=== PATIENT | female | born 1970 | race Caucasian/White ===

== ENCOUNTER 2020-02-25 05:10 | Emergency (ER) | payer OTHER ==
[~2020-02-25] VITALS: Ht 165.1 cm; Wt 86.2 kg
[~2020-02-25 05:10] MED LIST: ALLEGRA30 MG; AMBIEN; ASPIRIN325 PO; BACLOFEN 10MG T10 MG PO; BYSTOLIC10 MG PO; COLACE100 MG PO; DIVIGEL0.5 MG TRANSDERM; FLEXERIL; FLONASE 0.05%50 MCG NASAL; GLUCOPHAGE500 MG PO; KLONIPIN; KLONOPIN0.5 MG PO; METAMUCIL1 EAC1 PO; MIRALAX17 GM PO; MOBIC15 MG PO; NAPROSYN500 MG PO; NORCO 5-325 TA1 EACH PO; OXYCODONE HCL 55 MG PO; SAVELLA100 MG PO; SPIRONOLACTONE; SPIRONOLACTONE50 MG PO; TRAMADOL 50 MG50 MG PO; VENLAFAXIN75 MG/1 T2 PO; VESICARE 5 MG TA5 M1 PO; VESICARE 5 MG TA5 MG PO; XARELTO10 M1 PO; XARELTO10 MG PO; ZOLPIDEM TART12.5 MG PO; [UNRECOGNIZED DRUG - OTHER]
[2020-02-25] MEDS ORDERED: HYDROCODON-ACE1 EAC7 PO (05:22)
[2020-02-25] MEDS ORDERED: CELEBREX50 MG PO (05:22)
[2020-02-25] MEDS ORDERED: GABAPENTIN800 M1 PO (05:23)
[2020-02-25] MEDS ORDERED: MEDROLDOSEPACK PO (06:25)
[2020-02-25] MEDS ORDERED: PEPCID40 MG PO (06:25)
[2020-02-25 07:26] VITALS: BP 112/68
--- NOTE | 2020-02-28 11:55 | EKG ---
[place] [address] ELECTROCARDIOGRAM REPORT Name: MAMIE ZHENG Brenda Room: [facility]#: [id number] Admission: 02/25/20 Attend Phys: Discharge: 02/25/20 Date of : 66 Date of Service: 02/25/20 0553 Report #: [id number] THIS REPORT FOR: //name// [facility] ED Test Date: 2020-02-25 Test Time: 05:53:30 Pat Name: MAMIE ZHENG Department: Room: Gender: Tug Hand: : 1970 Requested By: Luciana James Order Number: [id number] MD: Kamaljit Cerda Measurements Intervals [place] Rate: 89 P: 37 [place]: 171 QRS: 26 QRSD: 60 T: 84 QT: 488 QTc: 594 Interpretive Statements Sinus rhythm nonspecific t wave changes Prolonged QT interval Artifact in lead(s) II,III,aVR,aVL,aVF,V1,V2,V3,V4,V5,V6 Electronically Signed On 02-28-2020 11:55:24 LBD TEACHER by Kamaljit Cerda [email or web address] <ELECTRONICALLY SIGNED> By: Kamaljit Cerda MD, FACC 02/28/20 1155 0553 0553 Kamaljit Cerda MD, [facility] /EPI
== END 2020-02-25 07:29 | disposition home or self-care (01) ==
LOC: M.ERS 05:10
DX: T78.3XXA Angioneurotic edema, initial encounter (principal); I10 Essential (primary) hypertension; M79.7 Fibromyalgia; Z79.899 Other long term (current) drug therapy; Z90.710 Acquired absence of both cervix and uterus; Y92.89 Other specified places as the place of occurrence of the external cause